=== PATIENT | male | born 1940 | race Caucasian/White ===

== ENCOUNTER → 2016-08-27 | Outpatient (CLI) | payer MEDICARE, OTHER ==
[~2016-08-27] MED LIST: ALLOPURINOL100 MG PO; BACITRACIN--O.0.9 GM TP; COLACE100 MG PO; COZAAR25 MG PO; DYAZIDE 37.5-21 EACH PO; FINASTERIDE5 MG PO; FISH OIL 1,4001 EACH PO; FLOMAX DPS0.4 MG PO; HUMIRA40 MG/0.8 PO; MAALOX DPS30 ML PO; METAMUCIL SF P3.4 GM PO; MILK OF MAGNESI10 ML PO; NASONEX IH; NASONEX NASAL S17 GM NS; OXYCODONE-ACET1 EAC1 PO; OXYGEN NS; PERCOCET 10-321 EACH PO; ROCALTROL DP0.25 MCG PO; SENOKOT S1 TAB PO; SURFAK240 MG PO; TYLENOL DPS325 MG PO; VALIUM5 MG PO; VITAMIN B122500 MCG PO; VITAMIN D31000 UNIT PO
== END | disposition home or self-care (01) ==
LOC: RAD.S 09:45
DX: I10 Essential (primary) hypertension (principal); C65.9 Malignant neoplasm of unspecified renal pelvis

== ENCOUNTER → 2016-09-13 | Outpatient (CLI) | payer MEDICARE, OTHER | END | disposition home or self-care (01) | LOC: RAD.S 09-10 11:45 | DX: K80.20 Calculus of gallbladder without cholecystitis without obstruction (principal); R11.2 Nausea with vomiting, unspecified; N40.0 Benign prostatic hyperplasia without lower urinary tract symptoms; E04.1 Nontoxic single thyroid nodule; E07.89 Other specified disorders of thyroid ==

== ENCOUNTER 2016-10-08 06:58 | Observation (INO) | payer MEDICARE, OTHER ==
[~2016-10-08 06:58] MED LIST changes: -ALLOPURINOL100 MG PO; -BACITRACIN--O.0.9 GM TP; -FISH OIL 1,4001 EACH PO; -NASONEX NASAL S17 GM NS
[2016-10-11] MEDS ORDERED: ALLOPURINOL100 MG PO (07:17)
[2016-10-11] MEDS ORDERED: NASONEX NASAL S17 GM NS (07:22)
[2016-10-11] MEDS ORDERED: FISH OIL 1,4001 EACH PO (07:23)
[2016-10-11] MEDS ORDERED: BACITRACIN--O.0.9 GM TP (07:24)
== END 2016-10-09 09:30 | disposition home or self-care (01) ==
DX: E04.2 Nontoxic multinodular goiter (principal); D35.1 Benign neoplasm of parathyroid gland; E06.9 Thyroiditis, unspecified; M19.90 Unspecified osteoarthritis, unspecified site; E66.9 Obesity, unspecified; K21.9 Gastro-esophageal reflux disease without esophagitis; I10 Essential (primary) hypertension; Z98.890 Other specified postprocedural states; Z90.49 Acquired absence of other specified parts of digestive tract; Z79.899 Other long term (current) drug therapy; Z90.5 Acquired absence of kidney; Z87.891 Personal history of nicotine dependence